=== PATIENT | male | born 1995 ===

== ENCOUNTER 2022-05-09 01:25 | Emergency (ER) | payer BC | END 2022-05-09 01:55 | disposition home or self-care (01) | LOC: LL.ED 01:25 | DX: T16.2XXA Foreign body in left ear, initial encounter (principal) | CPT/HCPCS: 69200; 99282-25; 99283 ==

== ENCOUNTER 2024-04-25 00:40 | Emergency (ER) | payer OTHER, BC ==
[2024-04-25 00:52] VITALS: PULSE 92
[2024-04-25] MEDS: Diphtheria,Pertussis(Acell),Tetanus Vaccine 0.5 ML Syringe IM ONE (01:22)
[2024-04-25 01:33] VITALS: BP 172/108
== END 2024-04-25 01:58 | disposition home or self-care (01) ==
LOC: LL.ED 00:40
DX: S93.401A Sprain of unspecified ligament of right ankle, initial encounter (principal); Z23 Encounter for immunization; W01.0XXA Fall on same level from slipping, tripping and stumbling without subsequent striking against object, initial encounter; Y92.89 Other specified places as the place of occurrence of the external cause; Y99.0 Civilian activity done for income or pay
CPT/HCPCS: 73610-RT; 73630-RT; 90471; 90715; 99283-25